=== PATIENT | male | born 1935 | race African-American/Black ===

== ENCOUNTER 2016-09-11 08:59 | Inpatient (IN) | payer MEDICARE, MEDICAID ==
[~2016-09-11] VITALS: Ht 170.2 cm; Wt 75.7 kg
[~2016-09-11 08:59] MED LIST: ALBU2.5V13 INH; ALLO100T PO; FLUT1DIS5 INH; OLME1TAB19 PO; PRED5TAB48 PO; TRAM50TA3 PO
[2016-09-11 09:46] LABS: HEMATOCRIT. 34.2 % (42.0-52.0); HEMOGLOBIN. 11.4 g/dL (14.0-18.0); MEAN CORPUSCULAR HEMOGLOBIN 29.6 pg (28.0-32.0); MEAN CORPUSCULAR HGB CONC 33.3 g/dL (31.0-37.0); PLATELET 183 x1000/uL (130-400); RED BLOOD CELL COUNT 3.85 mill/uL (4.7-6.1); RED CELL DISTRIBUTION WIDTH 15.3 % (11.6-14.6); WHITE BLOOD COUNT 8.3 x1000/uL (4.5-11.0)
[2016-09-11 09:51] LABS: DIFFERENTIAL COMMENT 1
[2016-09-11 09:54] LABS: PROTHROMBIN TIME 10.4 sec
[2016-09-11 10:04] LABS: ALANINE AMINOTRANSFERASE 18 IU/L (13-61); ALBUMIN 2.9 g/dL (3.4-5.0); ANION GAP 14; CALCIUM 8.3 mg/dL (8.5-10.1); CARBON DIOXIDE 28 mEq/L (21-32); CHLORIDE 99 mEq/L (98-107); CREATINE KINASE 51 IU/L (39-308); INDEX HEMOLYSI 1 (1-3); INDEX ICTERIC 1 (1-4); INDEX LIPEMIC 1 (1-3); TROPONIN I < 0.02 ng/mL (0.00-0.04); UREA NITROGEN BLOOD 39 mg/dL (7-21); eGFR 26 mL/min (>60)
[2016-09-11 10:12] LABS: LACTIC ACID 2.2 mmol/L (0.4-2.0)
[2016-09-11 10:20] LABS: PLATELET ESTIMATE NORMAL
[2016-09-11] MEDS ORDERED: SODIUM CHLORIDE 0.9% 1000ML BAG (SEPSIS BOLUS) IV ONE (10:30)
[2016-09-11 12:20] LABS: CLARITY URINE CLOUDY (CLEAR); COLOR URINE YELLOW (YELLOW); GLUCOSE URINE 3+ (NEGATIVE); KETONES URINE NEGATIVE (NEGATIVE); LEUKOCYTE ESTERASE URINE 3+ (NEGATIVE); NITRITE URINE NEGATIVE (NEGATIVE); OCCULT BLOOD URINE 1+ (NEGATIVE); PH URINE 5.5 (4.5-8.0); PROTEIN URINE TRACE (NEGATIVE); SPECIFIC GRAVITY URINE 1.018 (1.005-1.030); UROBILINOGEN URINE 0.2 E.U./dL (0.2-1.0)
[2016-09-11] MEDS ORDERED: ENOXAPARIN 80MG/0.8ML SYR SUBCUT ONE (12:30)
[2016-09-11 12:35] LABS: RBC URINE 0-2 /hpf (0-2); SQUAMOUS EPITHELIAL CELL URINE FEW /lpf (RARE/1+); WBC URINE 15-25 /hpf (0-2)
[2016-09-11 12:36] LABS: BACTERIA URINE NONE SEEN
[2016-09-11] MEDS ORDERED: CEFTRIAXONE 1 G PREMIX 50 ML IV ONE (13:15)
[2016-09-11 15:00] VITALS: BP 125/77
[2016-09-11 15:45] VITALS: BP 125/77
[2016-09-11] MEDS ORDERED: DEXTROSE 50% WATER 50ML SYRINGE IV PRN (16:30)
[2016-09-11] MEDS: BLOOD SUGAR DIAGNOSTIC STRIP TEST SCH ×2 (17:28→21:28)
[2016-09-11] MEDS: ENOXAPARIN 80MG/0.8ML SYR SUBCUT SCH (17:34)
[2016-09-11] MEDS: INSULIN LISPRO 100 UNITS/ML SUBCUT SCH ×2 (18:40→21:35)
[2016-09-12 04:00] VITALS: BP 100/79
[2016-09-12] MEDS ORDERED: LEVOFLOXACIN 250MG PREMIX 50 ML IV SCH (04:00)
[2016-09-12] MEDS: BLOOD SUGAR DIAGNOSTIC STRIP TEST SCH ×4 (06:06→21:30)
[2016-09-12] MEDS: INSULIN LISPRO 100 UNITS/ML SUBCUT SCH ×4 (07:09→21:34)
[2016-09-12 07:58] LABS: HEMATOCRIT. 32.3 % (42.0-52.0); HEMOGLOBIN. 10.9 g/dL (14.0-18.0); MEAN CORPUSCULAR HEMOGLOBIN 29.5 pg (28.0-32.0); MEAN CORPUSCULAR HGB CONC 33.8 g/dL (31.0-37.0); MEAN CORPUSCULAR VOLUME 87.3 fL (80.0-94.0); MEAN PLATELET VOLUME 7.9 fl (7.4-10.4); PLATELET 180 x1000/uL (130-400); RED BLOOD CELL COUNT 3.69 mill/uL (4.7-6.1); RED CELL DISTRIBUTION WIDTH 15.9 % (11.6-14.6); WHITE BLOOD COUNT 6.6 x1000/uL (4.5-11.0)
[2016-09-12 08:00] VITALS: BP 115/77
[2016-09-12 08:08] LABS: DIFFERENTIAL COMMENT 1
[2016-09-12 08:18] LABS: CALCIUM 8.7 mg/dL (8.5-10.1)
[2016-09-12] MEDS: LEVOFLOXACIN 250MG PREMIX 50 ML IV SCH (08:36)
[2016-09-12 09:28] LABS: T4 FREE 0.96 ng/dL (0.76-1.46); THYROID STIMULATING HORMONE 1.6 mIU/mL (0.36-3.74)
[2016-09-12 09:31] LABS: T3 FREE 2.36 pg/ml (2.18-3.98)
[2016-09-12 09:49] LABS: FOLIC ACID (FOLATE) SERUM 12.5 ng/mL (>5.38)
[2016-09-12 12:00] VITALS: BP 108/78
[2016-09-12 16:00] VITALS: BP 120/82
[2016-09-12] MEDS: ENOXAPARIN 80MG/0.8ML SYR SUBCUT SCH (17:41)
[2016-09-12 17:46] LABS: PLATELET ESTIMATE NORMAL
[2016-09-12 20:00] VITALS: BP 100/67
[2016-09-13] VITALS: BP 105/68
[2016-09-13 04:00] VITALS: BP 129/80
[2016-09-13] MEDS: BLOOD SUGAR DIAGNOSTIC STRIP TEST SCH ×4 (06:34→22:50)
[2016-09-13] MEDS: INSULIN LISPRO 100 UNITS/ML SUBCUT SCH ×4 (06:35→23:36)
[2016-09-13 07:04] LABS: HEMATOCRIT. 32.5 % (42.0-52.0); MEAN CORPUSCULAR HEMOGLOBIN 29.5 pg (28.0-32.0); MEAN CORPUSCULAR HGB CONC 33.8 g/dL (31.0-37.0); MEAN CORPUSCULAR VOLUME 87.3 fL (80.0-94.0); MEAN PLATELET VOLUME 8.2 fl (7.4-10.4); PLATELET 178 x1000/uL (130-400); RED BLOOD CELL COUNT 3.73 mill/uL (4.7-6.1); RED CELL DISTRIBUTION WIDTH 15.6 % (11.6-14.6); WHITE BLOOD COUNT 8.5 x1000/uL (4.5-11.0)
[2016-09-13 07:41] LABS: CALCIUM 8.2 mg/dL (8.5-10.1)
[2016-09-13 07:54] LABS: DIFFERENTIAL COMMENT 1
[2016-09-13 08:00] VITALS: BP 98/63
[2016-09-13] MEDS: LEVOFLOXACIN 250MG PREMIX 50 ML IV SCH (09:10)
[2016-09-13 12:00] VITALS: BP 101/62
[2016-09-13] MEDS ORDERED: POTASSIUM CHLORIDE 20MEQ TABLET SR PO NR (14:13)
[2016-09-13 16:00] VITALS: BP 120/70
[2016-09-13 16:16] LABS: PLATELET ESTIMATE NORMAL
[2016-09-13] MEDS: ENOXAPARIN 80MG/0.8ML SYR SUBCUT SCH (17:17)
[2016-09-13] MEDS ORDERED: ALBUTEROL (0.083%) 2.5MG/3ML NEB INH PRN (18:00)
[2016-09-13 20:00] VITALS: BP 105/66
[2016-09-13] MEDS: ALBUTEROL (0.083%) 2.5MG/3ML NEB HHN SCH (21:09)
[2016-09-13] MEDS: BUDESONIDE 0.5MG/2ML NEB HHN SCH (21:09)
[2016-09-13] MEDS: TRAMADOL 50MG TABLET PO PRN (23:14)
[2016-09-14] VITALS (7 sets, daily range): BP systolic 93–111; BP diastolic 52–83
[2016-09-14 07:17] LABS: CALCIUM 7.8 mg/dL (8.5-10.1)
[2016-09-14] MEDS: BLOOD SUGAR DIAGNOSTIC STRIP TEST SCH ×4 (07:20→21:41)
[2016-09-14] MEDS: INSULIN LISPRO 100 UNITS/ML SUBCUT SCH ×4 (07:50→22:19)
[2016-09-14] MEDS ORDERED: FLUTICASONE INH SCH (09:00)
[2016-09-14] MEDS ORDERED: OLMESARTAN PO SCH (09:00)
[2016-09-14] MEDS: HYDROCHLOROTHIAZIDE 12.5MG CAPSULE PO SCH (09:00)
[2016-09-14] MEDS ORDERED: HYDROCHLOROTHIAZIDE PO SCH (09:00)
[2016-09-14] MEDS: LOSARTAN POTASSIUM 100 MG TABLET PO SCH (09:00)
[2016-09-14] MEDS ORDERED: [UNRECOGNIZED DRUG - OTHER] PO SCH (09:00)
[2016-09-14] MEDS ORDERED: SALMETEROL INH SCH (09:00)
[2016-09-14] MEDS: ALLOPURINOL 100 MG TABLET PO SCH (09:08)
[2016-09-14] MEDS: LEVOFLOXACIN 250MG PREMIX 50 ML IV SCH (09:08)
[2016-09-14] MEDS: ALBUTEROL (0.083%) 2.5MG/3ML NEB HHN SCH ×4 (09:20→20:16)
[2016-09-14] MEDS: BUDESONIDE 0.5MG/2ML NEB HHN SCH ×2 (09:21→20:16)
[2016-09-14] MEDS: ENOXAPARIN 80MG/0.8ML SYR SUBCUT SCH (16:38)
[2016-09-14] MEDS: TRAMADOL 50MG TABLET PO PRN (22:15)
[2016-09-15] MEDS ORDERED: DILTIAZEM HCL 180MG CAPSULE CD 24HR PO NR (01:45)
[2016-09-15 03:10] VITALS: BP 94/63
[2016-09-15] MEDS: BLOOD SUGAR DIAGNOSTIC STRIP TEST SCH ×4 (05:59→20:53)
[2016-09-15] MEDS: INSULIN LISPRO 100 UNITS/ML SUBCUT SCH ×4 (06:47→21:00)
[2016-09-15 08:00] VITALS: BP 103/61
[2016-09-15] MEDS: ALBUTEROL (0.083%) 2.5MG/3ML NEB HHN SCH ×4 (08:40→19:53)
[2016-09-15] MEDS: BUDESONIDE 0.5MG/2ML NEB HHN SCH ×2 (08:41→19:54)
[2016-09-15] MEDS ORDERED: DILTIAZEM HCL 180MG CAPSULE CD 24HR PO SCH (09:00)
[2016-09-15] MEDS: LOSARTAN POTASSIUM 100 MG TABLET PO SCH (09:00)
[2016-09-15] MEDS: HYDROCHLOROTHIAZIDE 12.5MG CAPSULE PO SCH (09:00)
[2016-09-15] MEDS: ALLOPURINOL 100 MG TABLET PO SCH (09:42)
[2016-09-15] MEDS: LEVOFLOXACIN 250MG PREMIX 50 ML IV SCH (11:29)
[2016-09-15 12:00] VITALS: BP 102/63
[2016-09-15 16:00] VITALS: BP 95/47
[2016-09-15] MEDS: ENOXAPARIN 80MG/0.8ML SYR SUBCUT SCH (17:00)
[2016-09-15] MEDS: DILTIAZEM HCL 180MG CAPSULE CD 24HR PO SCH (19:15)
[2016-09-15] MEDS ORDERED: ATENOLOL 50 MG TABLET PO NR (19:41)
[2016-09-15] MEDS ORDERED: POTASSIUM CHLORIDE 20MEQ TABLET SR PO NR (19:48)
[2016-09-15 20:00] VITALS: BP 94/62
[2016-09-15] MEDS ORDERED: MAGNESIUM/ALUMINUM HYDROXIDE/SIMETHICONE 30ML UDC PO PRN (20:00)
[2016-09-15 20:10] LABS: BG BASE EXCESS -1.1 mmol/L (-2.0-2.0); BG CARBOXYHEMOGLOBIN 0.3 % (0.5-1.5); BG DEOXYHEMOGLOBIN 3.3 % (0.0-5.0); BG FRACTION INSPIRED OXYGEN 21; BG HCO3 ACT 20.8 mmol/L (22.0-26.0); BG METHEMOGLOBIN 0.5 % (0.0-1.5); BG OXYGEN SATURATION 96.7 % (92.0-98.5); BG OXYHEMOGLOBIN 95.9 % (94.0-97.0); BG PCO2 26.6 mmHg (35.0-45.0); BG PO2 87.8 mmHg (75.0-100.0); BG SAMPLE SITE LEFT RADIAL; BG TOTAL HEMOGLOBIN 11.7 g/dL (12.0-18.0); BG VENT MODE ROOM AIR
[2016-09-15] MEDS ORDERED: SODIUM CHLORIDE 0.45% 1,000 ML IV SCH (20:15)
[2016-09-16] VITALS: BP 99/59
[2016-09-16 04:00] VITALS: BP 91/61
[2016-09-16 06:44] LABS: HEMATOCRIT. 29.5 % (42.0-52.0); HEMOGLOBIN. 9.9 g/dL (14.0-18.0); MEAN CORPUSCULAR HEMOGLOBIN 29.8 pg (28.0-32.0); MEAN CORPUSCULAR HGB CONC 33.7 g/dL (31.0-37.0); MEAN CORPUSCULAR VOLUME 88.4 fL (80.0-94.0); PLATELET 176 x1000/uL (130-400); RED BLOOD CELL COUNT 3.33 mill/uL (4.7-6.1); RED CELL DISTRIBUTION WIDTH 15.3 % (11.6-14.6); WHITE BLOOD COUNT 7.8 x1000/uL (4.5-11.0)
[2016-09-16] MEDS ORDERED: SODIUM CHLORIDE 0.45% 1,000 ML IV SCH (06:45)
[2016-09-16] MEDS: INSULIN LISPRO 100 UNITS/ML SUBCUT SCH ×4 (06:46→20:18)
[2016-09-16] MEDS: BLOOD SUGAR DIAGNOSTIC STRIP TEST SCH ×4 (06:46→20:18)
[2016-09-16 06:48] LABS: DIFFERENTIAL COMMENT 1
[2016-09-16] MEDS: TRAMADOL 50MG TABLET PO PRN (07:55)
[2016-09-16] MEDS: ALLOPURINOL 100 MG TABLET PO SCH (07:56)
[2016-09-16] MEDS: LEVOFLOXACIN 250MG PREMIX 50 ML IV SCH (07:58)
[2016-09-16 08:00] VITALS: BP 90/57
[2016-09-16] MEDS: HYDROCHLOROTHIAZIDE 12.5MG CAPSULE PO SCH (09:00)
[2016-09-16] MEDS: LOSARTAN POTASSIUM 100 MG TABLET PO SCH (09:00)
[2016-09-16] MEDS: DILTIAZEM HCL 180MG CAPSULE CD 24HR PO SCH (09:00)
[2016-09-16] MEDS: BUDESONIDE 0.5MG/2ML NEB HHN SCH ×2 (09:05→20:44)
[2016-09-16] MEDS: ALBUTEROL (0.083%) 2.5MG/3ML NEB HHN SCH ×4 (09:05→20:44)
[2016-09-16 09:12] LABS: CALCIUM 7.8 mg/dL (8.5-10.1); MAGNESIUM 1.6 mg/dL (1.8-2.4)
[2016-09-16 12:00] VITALS: BP 96/60
[2016-09-16 14:58] LABS: HYPOCHROMASIA 1+; PLATELET ESTIMATE NORMAL
[2016-09-16 16:00] VITALS: BP 98/64
[2016-09-16] MEDS ORDERED: SODIUM CHLORIDE 0.9% 1,000 ML IV SCH (17:00)
[2016-09-16] MEDS: ENOXAPARIN 80MG/0.8ML SYR SUBCUT SCH (17:27)
[2016-09-16] MEDS: SODIUM CHLORIDE 0.45% 1,000 ML IV SCH (17:28)
[2016-09-16 20:00] VITALS: BP 104/64
[2016-09-17] VITALS: BP 102/63
[2016-09-17] MEDS: TRAMADOL 50MG TABLET PO PRN ×3 (00:10→20:16)
[2016-09-17 04:00] VITALS: BP 110/70
[2016-09-17] MEDS: BLOOD SUGAR DIAGNOSTIC STRIP TEST SCH ×4 (06:05→20:23)
[2016-09-17] MEDS: INSULIN LISPRO 100 UNITS/ML SUBCUT SCH ×4 (06:23→20:23)
[2016-09-17 08:00] VITALS: BP 97/65
[2016-09-17] MEDS: ALBUTEROL (0.083%) 2.5MG/3ML NEB HHN SCH ×4 (08:20→20:36)
[2016-09-17] MEDS: BUDESONIDE 0.5MG/2ML NEB HHN SCH ×2 (08:20→20:36)
[2016-09-17] MEDS: LEVOFLOXACIN 250MG PREMIX 50 ML IV SCH (08:50)
[2016-09-17] MEDS: ALLOPURINOL 100 MG TABLET PO SCH (08:50)
[2016-09-17] MEDS: DILTIAZEM HCL 180MG CAPSULE CD 24HR PO SCH (08:56)
[2016-09-17] MEDS: LOSARTAN POTASSIUM 100 MG TABLET PO SCH (08:57)
[2016-09-17] MEDS: HYDROCHLOROTHIAZIDE 12.5MG CAPSULE PO SCH (08:57)
[2016-09-17] MEDS ORDERED: LACTULOSE 20G/30ML UDC PO NR (10:00)
[2016-09-17 12:00] VITALS: BP 147/89
[2016-09-17] MEDS: SODIUM CHLORIDE 0.45% 1,000 ML IV SCH (12:11)
[2016-09-17 16:00] VITALS: BP 120/71
[2016-09-17] MEDS: ENOXAPARIN 80MG/0.8ML SYR SUBCUT SCH (17:36)
[2016-09-17 20:00] VITALS: BP_SYST 107; BP_SYST 119; BP_DIAS 66; BP_DIAS 74
[2016-09-18] VITALS: BP 100/64
[2016-09-18 04:00] VITALS: BP 117/75
[2016-09-18] MEDS: BLOOD SUGAR DIAGNOSTIC STRIP TEST SCH ×3 (05:51→17:30)
[2016-09-18] MEDS: SODIUM CHLORIDE 0.45% 1,000 ML IV SCH (05:51)
[2016-09-18] MEDS: TRAMADOL 50MG TABLET PO PRN ×2 (05:51→09:40)
[2016-09-18] MEDS: INSULIN LISPRO 100 UNITS/ML SUBCUT SCH ×2 (06:16→12:15)
[2016-09-18 08:00] VITALS: BP 108/69
[2016-09-18] MEDS: HYDROCHLOROTHIAZIDE 12.5MG CAPSULE PO SCH (09:00)
[2016-09-18] MEDS: LOSARTAN POTASSIUM 100 MG TABLET PO SCH (09:00)
[2016-09-18] MEDS: BUDESONIDE 0.5MG/2ML NEB HHN SCH (09:00)
[2016-09-18] MEDS: ALBUTEROL (0.083%) 2.5MG/3ML NEB HHN SCH ×2 (09:00→13:00)
[2016-09-18] MEDS: DILTIAZEM HCL 180MG CAPSULE CD 24HR PO SCH (09:39)
[2016-09-18] MEDS: ALLOPURINOL 100 MG TABLET PO SCH (09:40)
[2016-09-18] MEDS: LEVOFLOXACIN 250MG PREMIX 50 ML IV SCH (09:42)
[2016-09-18 15:52] VITALS: BP 106/68
== END 2016-09-18 18:37 | disposition home health service (06) | DRG 64 ==
LOC: ER 09:19 → 6EST 11:25 → 5WST 09-15 03:00
PROVIDERS: ADMIT Internal Medicine; ATTEND Internal Medicine
DX: I63.9 Cerebral infarction, unspecified (principal); G82.50 Quadriplegia, unspecified; I82.432 Acute embolism and thrombosis of left popliteal vein; N39.0 Urinary tract infection, site not specified; E87.2 Acidosis; N17.9 Acute kidney failure, unspecified; I69.351 Hemiplegia and hemiparesis following cerebral infarction affecting right dominant side; I12.9 Hypertensive chronic kidney disease with stage 1 through stage 4 chronic kidney disease, or unspecified chronic kidney disease; N18.3 Chronic kidney disease, stage 3 (moderate); M48.02 Spinal stenosis, cervical region; D64.9 Anemia, unspecified; E03.9 Hypothyroidism, unspecified; E11.22 Type 2 diabetes mellitus with diabetic chronic kidney disease; E11.51 Type 2 diabetes mellitus with diabetic peripheral angiopathy without gangrene; E11.65 Type 2 diabetes mellitus with hyperglycemia; E78.5 Hyperlipidemia, unspecified; E86.0 Dehydration; E87.6 Hypokalemia; I25.10 Atherosclerotic heart disease of native coronary artery without angina pectoris; J44.9 Chronic obstructive pulmonary disease, unspecified; M10.00 Idiopathic gout, unspecified site; I77.89 Other specified disorders of arteries and arterioles; L89.159 Pressure ulcer of sacral region, unspecified stage; M48.06 Spinal stenosis, lumbar region; T38.0X5A Adverse effect of glucocorticoids and synthetic analogues, initial encounter; Z59.9 Problem related to housing and economic circumstances, unspecified; Z82.49 Family history of ischemic heart disease and other diseases of the circulatory system; Z79.899 Other long term (current) drug therapy
CPT/HCPCS: 36415; 36600; 70450; 70551; 72141; 72146; 72148; 80048; 80053; 80061; 81001; 82375; 82550; 82607; 82746; 82805; 82962; 83036; 83605; 83735; 84145; 84439; 84443; 84481; 84484; 85025; 85610; 87040; 87086; 93005; 93306; 93880; 93923; 93971; 94640; 94664; 96360; 96361; 96372; 97162; 97166; 99285; A4565; A6261; J0696; J1650; J1815; J1956; J7030; J7611; J7626

== ENCOUNTER 2016-10-22 07:49 | Emergency (ER) | payer MEDICARE, MEDICAID ==
[~2016-10-22] VITALS: Ht 172.7 cm; Wt 75.0 kg
[2016-10-22] MEDS ORDERED: SODIUM CHLORIDE 0.9% 1,000 ML IV ONE (08:21)
[2016-10-22] MEDS ORDERED: MAGNESIUM CITRATE 300ML SOLUTION PO ONE (08:30)
[2016-10-22 08:54] LABS: BASOPHILS % 1.4 % (0.0-2.0); EOSINOPHILS % 6.4 % (0.0-5.0); HEMATOCRIT. 28.3 % (42.0-52.0); HEMOGLOBIN. 9.3 g/dL (14.0-18.0); LYMPHOCYTES % 33.9 % (20.0-50.0); MEAN CORPUSCULAR HEMOGLOBIN 28.6 pg (28.0-32.0); MEAN CORPUSCULAR HGB CONC 32.8 g/dL (31.0-37.0); MEAN CORPUSCULAR VOLUME 87.2 fL (80.0-94.0); MONOCYTES % 5.5 % (2.0-8.0); NEUTROPHILS % 52.8 % (40.0-76.0); PLATELET 331 x1000/uL (130-400); RED BLOOD CELL COUNT 3.25 mill/uL (4.7-6.1); RED CELL DISTRIBUTION WIDTH 15.4 % (11.6-14.6); WHITE BLOOD COUNT 5.7 x1000/uL (4.5-11.0)
[2016-10-22 08:57] LABS: CHLORIDE 108 mEq/L (98-107); INDEX HEMOLYSI 1 (1-3); INDEX ICTERIC 1 (1-4); INDEX LIPEMIC 1 (1-3)
[2016-10-22 08:58] LABS: INR 1.1; PROTHROMBIN TIME 11.2 sec
[2016-10-22 09:03] LABS: ALANINE AMINOTRANSFERASE 10 IU/L (13-61); ALBUMIN 2.8 g/dL (3.4-5.0); ANION GAP 13; CALCIUM 9.3 mg/dL (8.5-10.1); CARBON DIOXIDE 30 mEq/L (21-32); UREA NITROGEN BLOOD 21 mg/dL (7-21); eGFR 35 mL/min (>60)
[2016-10-22] MEDS ORDERED: POTASSIUM CHLORIDE 20MEQ TABLET SR PO ONE (09:30)
[2016-10-22] MEDS ORDERED: KCL 10MEQ/50ML PREMIX 50 ML IV ONE ×2 (09:30)
[2016-10-22 09:32] LABS: MAGNESIUM 1.7 mg/dL (1.8-2.4)
[2016-10-22 12:36] VITALS: BP 152/82
== END 2016-10-22 12:37 | disposition home or self-care (01) ==
LOC: ER 08:12
DX: K59.00 Constipation, unspecified (principal); E87.6 Hypokalemia; E86.0 Dehydration; D64.9 Anemia, unspecified; I12.9 Hypertensive chronic kidney disease with stage 1 through stage 4 chronic kidney disease, or unspecified chronic kidney disease; N18.9 Chronic kidney disease, unspecified; I69.351 Hemiplegia and hemiparesis following cerebral infarction affecting right dominant side
CPT/HCPCS: 36415; 74000; 80053; 83735; 85025; 85610; 96361; 96365; 96366; 99285; J3480; J7030